=== PATIENT | male | born 1940 | race Caucasian/White ===

== ENCOUNTER → 2020-06-21 | Outpatient (CLI) | payer MEDICARE, BC ==
[~2020-06-21] MED LIST: AMLO5TAB4 PO; GABA300C PO; GABA600T7 PO; IRBE1TAB37 PO; SIMV20TA19 PO; TYLENOL PO; Vitamin D3 PO
== END | disposition home or self-care (01) ==
LOC: STAR 09:55
PROVIDERS: ATTEND Anesthesiology
DX: Z01.812 Encounter for preprocedural laboratory examination (principal); Z20.828 Contact with and (suspected) exposure to other viral communicable diseases
CPT/HCPCS: 36415; 87635

== ENCOUNTER 2020-06-24 08:17 | Day surgery (SDC) | payer MEDICARE, BC ==
[~2020-06-24] VITALS: Ht 185.4 cm; Wt 96.6 kg
[~2020-06-24 08:17] MED LIST changes: -TYLENOL PO
[2020-06-24 08:52] VITALS: BP 192/90
[2020-06-24] MEDS ORDERED: TYLENOL PO (08:55)
[2020-06-24] MEDS ORDERED: LACTATED RINGERS 1,000 ML IV SCH (09:00)
[2020-06-24] MEDS ORDERED: CHLORHEXIDINE 15 ML UDC MM ONE (09:00)
[2020-06-24] MEDS ORDERED: FENTANYL PF 250 MCG/5ML ONE (09:55)
[2020-06-24] MEDS ORDERED: CEFAZOLIN 1,000 MG ONE (11:04)
[2020-06-24] MEDS ORDERED: PROPOFOL 10 MG/ML, 20ML ONE ×2 (11:13→11:29)
[2020-06-24] MEDS ORDERED: DEXAMETHASONE 4 MG/ML, 1ML ONE (11:13)
[2020-06-24] MEDS ORDERED: FENTANYL PF 100 MCG/2ML IV PRN (11:30)
[2020-06-24] MEDS ORDERED: LABETALOL 5MG/ML, 20ML IV PRN (11:30)
[2020-06-24] MEDS ORDERED: HYDROmorphone 1 MG/ML, 1ML INJ IVPush PRN (11:30)
[2020-06-24] MEDS ORDERED: OXYcodone 5 MG/5 ML ORAL.SOL UDC PO PRN (11:30)
[2020-06-24] MEDS ORDERED: ACETAMINOPHEN 325 MG TABLET PO PRN (11:30)
[2020-06-24] MEDS ORDERED: PROMETHAZINE 25 MG/ML, 1ML IVPush PRN (11:30)
[2020-06-24] MEDS ORDERED: ONDANSETRON 2MG/ML, 2ML IVPush PRN (11:30)
[2020-06-24] MEDS ORDERED: hydrALAzine 20 MG/ML, 1ML IV PRN (11:30)
[2020-06-24] MEDS ORDERED: ROCURONIUM 10MG/ML,5ML ONE (11:31)
[2020-06-24] MEDS ORDERED: ONDANSETRON 2MG/ML, 2ML ONE (11:46)
[2020-06-24] MEDS ORDERED: SUGAMMADEX 200 MG/2 ML IVPush ONE (11:46)
== END 2020-06-24 14:10 | disposition home or self-care (01) ==
LOC: OUT 08:17
PROVIDERS: ATTEND Student in an Organized Health Care Education/Training Program
DX: N32.89 Other specified disorders of bladder (principal); D09.0 Carcinoma in situ of bladder; N30.20 Other chronic cystitis without hematuria; N39.41 Urge incontinence; N32.0 Bladder-neck obstruction; R35.1 Nocturia; I10 Essential (primary) hypertension; Z79.899 Other long term (current) drug therapy; Z90.79 Acquired absence of other genital organ(s); Z85.46 Personal history of malignant neoplasm of prostate; Z87.891 Personal history of nicotine dependence
CPT/HCPCS: 52234; 88307; 93005; J0690; J1100; J2405; J2704; J3010; J7120

== ENCOUNTER 2020-10-12 13:20 | Day surgery (SDC) | payer MEDICARE, BC ==
[~2020-10-12] VITALS: Ht 188 cm; Wt 94.6 kg
[~2020-10-12 13:20] MED LIST changes: +TYLENOL PO
[2020-10-12] MEDS ORDERED: CHLORHEXIDINE 15 ML UDC MM ONE (14:00)
[2020-10-12] MEDS ORDERED: LACTATED RINGERS 1,000 ML IV SCH (14:00)
[2020-10-12 14:01] VITALS: BP 188/78
[2020-10-12] MEDS ORDERED: MIDAZOLAM 1 MG/ML, 2ML ONE (14:32)
[2020-10-12] MEDS ORDERED: ONDANSETRON 2MG/ML, 2ML ONE (14:37)
[2020-10-12] MEDS ORDERED: PROPOFOL 10 MG/ML, 20ML ONE (14:37)
[2020-10-12] MEDS ORDERED: SUCCINYLCHOLINE 20 MG/ML, 10ML ONE (14:37)
[2020-10-12] MEDS ORDERED: SUGAMMADEX 200 MG/2 ML IVPush ONE (14:37)
[2020-10-12] MEDS ORDERED: ROCURONIUM 10 MG/ML,10ML ONE (14:37)
[2020-10-12] MEDS ORDERED: CEFAZOLIN 1,000 MG ONE (14:37)
[2020-10-12] MEDS ORDERED: PROMETHAZINE 25 MG/ML, 1ML IV PRN (15:30)
[2020-10-12] MEDS ORDERED: KETOROLAC 30 MG/1 ML IV PRN (15:30)
[2020-10-12] MEDS ORDERED: FENTANYL PF 100 MCG/2ML IV PRN (15:30)
[2020-10-12] MEDS ORDERED: HYDROmorphone 1 MG/ML, 1ML INJ IV PRN (15:30)
[2020-10-12] MEDS ORDERED: ALBUTEROL SULFATE 2.5 MG/3 ML NPPB PRN (15:30)
[2020-10-12] MEDS ORDERED: ONDANSETRON 2MG/ML, 2ML IVPush PRN (15:30)
[2020-10-12] MEDS ORDERED: MEPERIDINE/PF 25MG/0.5ML IVPush PRN (15:30)
[2020-10-12] MEDS ORDERED: METOCLOPRAMIDE 5 MG/ML, 2ML IV PRN (15:30)
[2020-10-12] MEDS ORDERED: DIAZEPAM 5 MG/ML, 2ML IV PRN ×2 (15:30)
[2020-10-12] MEDS ORDERED: hydrALAzine 20 MG/ML, 1ML IV PRN (15:30)
[2020-10-12] MEDS ORDERED: LABETALOL 5MG/ML, 20ML IV PRN (15:30)
[2020-10-12] MEDS ORDERED: OXYcodone 5 MG/5 ML ORAL.SOL UDC PO PRN (15:30)
[2020-10-12] MEDS ORDERED: hydrALAzine 20 MG/ML, 1ML ONE (15:47)
[2020-10-12] MEDS ORDERED: FENTANYL PF 100 MCG/2ML ONE (20:02)
== END 2020-10-12 16:55 | disposition home or self-care (01) ==
LOC: OUT 13:20
PROVIDERS: ATTEND Student in an Organized Health Care Education/Training Program
DX: N28.89 Other specified disorders of kidney and ureter (principal); N32.0 Bladder-neck obstruction; R35.0 Frequency of micturition; R39.15 Urgency of urination; I10 Essential (primary) hypertension; Z20.822 Contact with and (suspected) exposure to COVID-19; Z79.891 Long term (current) use of opiate analgesic; Z79.899 Other long term (current) drug therapy; Z85.46 Personal history of malignant neoplasm of prostate; Z87.891 Personal history of nicotine dependence; Z90.79 Acquired absence of other genital organ(s)
CPT/HCPCS: 52351; 74018; 93005; C1769; J0330; J0360; J0690; J2250; J2405; J2704; J3010; J7120; U0003; 76000